=== PATIENT | female | born 1935 | race Two or more races ===

== ENCOUNTER → 2018-01-24 | Emergency (ER) | payer MEDICARE, OTHER ==
[~2018-01-24] VITALS: Ht 160 cm; Wt 77.1 kg
[~2018-01-24] MED LIST: ALPR0.255 PO; ASPI-605 PO; ATOR20TA PO; IV NS 0.9% 500 ML BAG IV ONE; LISI-607 PO; METO50TA16 PO; MORPHINE SULFATE INJ 2 MG/ML DISP.SYRIN IV ONE; MORPHINE SULFATE INJ 4 MG/ML DISP.SYRIN ONE; ONDANSETRON HCL/PF 4 MG/2 ML VIAL IVP ONE; ONDANSETRON HCL/PF 4 MG/2 ML VIAL ONE; RIVA10TA PO
--- NOTE | 2018-01-24 04:46 | NUR ---
pt bib son, c/o of pelvic pain and blood in the urine, vs stable, placed in er bed 12, dr nixon at bed side to jose pt, awaiting for orders.
[2018-01-24 05:24] LABS: BASOPHILS # (AUTO) 0.1 /CMM (0.0-0.2); EOSINOPHILS % (AUTO) 1.6 % (0.0-6.0); HEMATOCRIT 39 % (33-45); HEMOGLOBIN 13.3 g/dL (11.5-14.8); LYMPHOCYTES # (AUTO) 1.4 /CMM (0.8-4.8); LYMPHOCYTES % (AUTO) 17.3 % (20.0-44.0); MEAN CORPUSCULAR HGB CONC 35 g/dl (31.0-36.0); MEAN CORPUSCULAR VOLUME 91 fL (82-100); MONOCYTES # (AUTO) 0.8 /CMM (0.1-1.30); MONOCYTES % (AUTO) 9.9 % (2.0-12.0); NEUTROPHILS # (AUTO) 5.7 /CMM (1.8-8.9); NEUTROPHILS % (AUTO) 70.2 % (43.0-81.0); PLATELET COUNT (AUTO) 165 /CMM (150-450); RED BLOOD CELL COUNT(AUTO) 4.23 MIL/uL (4.0-5.2); WHITE BLOOD COUNT (AUTO) 8.1 K/uL (4.3-11.0)
--- NOTE | 2018-01-24 05:24 | NUR ---
blood work ordered, ct wo contrast abd, iv ns 500ml started.
[2018-01-24 05:36] LABS: CALCIUM, SERUM 9.1 mg/dL (8.5-10.1); CARBON DIOXIDE 28 mmol/L (21-32); CHLORIDE 106 mmol/L (98-107); CREATININE 1.2 mg/dL (0.6-1.3); GLUCOSE 93 mg/dL (74-106); POTASSIUM 3.7 mmol/L (3.5-5.1); SODIUM SERUM 143 mmol/L (136-145); UREA NITROGEN, BLOOD 25 mg/dL (7-18)
[2018-01-24 05:42] LABS: ALANINE AMINOTRANSFERASE 16 U/L (12-78); ALBUMIN 3.4 g/dL (3.4-5.0); ALKALINE PHOSPHATASE 75 U/L (46-116); ASPARTATE AMINOTRANSFERASE 18 U/L (15-37); BILIRUBIN,DIRECT 0.1 mg/dL (0.0-0.2); BILIRUBIN,TOTAL 0.4 mg/dL (0.2-1.0); LIPASE 171 U/L (73-393); TOTAL PROTEIN, SERUM 7.3 g/dL (6.4-8.2)
[2018-01-24 05:57] LABS: APPEARANCE,URINE SL CLOUDY (CLEAR); BILIRUBIN,URINE NEGATIVE (NEGATIVE); BLOOD, URINE 3+ Ery/uL (NEGATIVE); COLOR,URINE RED (YELLOW); KETONES,URINE NEGATIVE (NEGATIVE); LEUKOCYTE ESTERASE ,URINE 1+ (NEGATIVE); NITRITE, URINE NEGATIVE (NEGATIVE); PROTEIN,URINE 1+ mg/dl (NEGATIVE); UGLUCOSE NEGATIVE (NEGATIVE); UROBILINOGEN,URINE 0.2 EU/dL (0.2)
[2018-01-24 06:09] LABS: BACTERIA,URINE Few /HPF (None Seen); RBC,URINE 21-50 /HPF (0-2); SQUAMOUS EPITHELIAL CELL,UR Few /HPF (None Seen); WBC,URINE 51-80 /HPF (0-3)
--- NOTE | 2018-01-24 06:34 | NUR ---
Patient discharged to home in stable condition. Written and verbal after care instructions given. Rx given and explained, Patient verbalizes understanding of instruction.
[2018-01-24 06:36] VITALS: BP 131/77
== END | disposition home or self-care (01) ==
LOC: ER 04:28
DX: N39.0 Urinary tract infection, site not specified (principal); I10 Essential (primary) hypertension; F98.0 Enuresis not due to a substance or known physiological condition; Z95.0 Presence of cardiac pacemaker; Z98.890 Other specified postprocedural states; Z88.0 Allergy status to penicillin; Z87.442 Personal history of urinary calculi; Z79.82 Long term (current) use of aspirin
CPT/HCPCS: 36415; 80048-TC; 80076-TC; 81000-TC; 83690-TC; 85025-TC; 87086-TC; 87186-TC; A4606; J2270; J2405; J7040; Z7610

== ENCOUNTER 2019-10-18 14:20 | Emergency (ER) | payer MEDICARE, OTHER ==
[~2019-10-18] VITALS: Ht 165.1 cm; Wt 68.0 kg
[~2019-10-18 14:20] MED LIST changes: -IV NS 0.9% 500 ML BAG IV ONE; -MORPHINE SULFATE INJ 2 MG/ML DISP.SYRIN IV ONE; -MORPHINE SULFATE INJ 4 MG/ML DISP.SYRIN ONE; -ONDANSETRON HCL/PF 4 MG/2 ML VIAL IVP ONE; -ONDANSETRON HCL/PF 4 MG/2 ML VIAL ONE
[2019-10-18 14:31] VITALS: BP 137/76
[2019-10-18 14:40] LABS: APPEARANCE,URINE Turbid (CLEAR); BILIRUBIN,URINE Negative (NEGATIVE); BLOOD, URINE Large Ery/uL (NEGATIVE); COLOR,URINE Yellow (YELLOW); KETONES,URINE Negative (NEGATIVE); LEUKOCYTE ESTERASE ,URINE Moderate (NEGATIVE); NITRITE, URINE Negative (NEGATIVE); PROTEIN,URINE >=300 mg/dl (NEGATIVE); UGLUCOSE Negative (NEGATIVE); UROBILINOGEN,URINE 0.2 EU/dL (0.2)
--- NOTE | 2019-10-18 14:40 | NUR ---
URINE SPECIMEN COLLECTED AND SENT TO LAB.
[2019-10-18 14:48] LABS: BACTERIA,URINE Many /HPF (None Seen); RBC,URINE TOO NUMEROUS TO COUN /HPF (0-2); SQUAMOUS EPITHELIAL CELL,UR Few /HPF (None Seen); WBC,URINE 21-50 /HPF (0-3)
--- NOTE | 2019-10-18 15:20 | NUR ---
Patient discharged to home in stable condition. Written and verbal after care instructions given. Patient verbalizes understanding of instruction.
== END 2019-10-18 15:21 | disposition home or self-care (01) ==
LOC: ER 14:22
DX: N39.0 Urinary tract infection, site not specified (principal); I10 Essential (primary) hypertension; Z87.442 Personal history of urinary calculi; Z95.0 Presence of cardiac pacemaker; Z98.890 Other specified postprocedural states; Z88.0 Allergy status to penicillin; Z79.899 Other long term (current) drug therapy; Z79.82 Long term (current) use of aspirin
CPT/HCPCS: 81000-TC; 87086-TC

== ENCOUNTER 2019-11-07 19:57 | Emergency (ER) | payer MEDICARE, OTHER ==
[~2019-11-07] VITALS: Ht 162.6 cm; Wt 72.6 kg
--- NOTE | 2019-11-07 20:31 | NUR ---
PATIENT AMBULATED TO THE RESTROOM WITH A STEADY GAIT.
--- NOTE | 2019-11-07 20:31 | NUR ---
PATIENT CAME TO ER BED 9 WITH SON C/O PALPITATION SINCE 2xDAYS AGO AND BILATERAL LOWER EXTREMITY EDEMA WITH LEFT LEG PAIN. PATIENT IS AAXO4. NO SOB. BREATHING EVENLY AND UNLABORED ON ROOM AIR. CONNECTED TO THE MONITOR.
--- NOTE | 2019-11-07 20:40 | NUR ---
luca collected and sent to the lab
[2019-11-07 21:08] LABS: BASOPHILS % (AUTO) 0.7 % (0.0-2.0); EOSINOPHILS % (AUTO) 1.3 % (0.0-6.0); HEMATOCRIT 38 % (33-45); HEMOGLOBIN 12.8 g/dL (11.5-14.8); LYMPHOCYTES # (AUTO) 1.5 /CMM (0.8-4.8); LYMPHOCYTES % (AUTO) 22.3 % (20.0-44.0); MEAN CORPUSCULAR HGB CONC 34 g/dl (31.0-36.0); MEAN CORPUSCULAR VOLUME 94 fL (82-100); MONOCYTES # (AUTO) 0.8 /CMM (0.1-1.30); MONOCYTES % (AUTO) 11.6 % (2.0-12.0); NEUTROPHILS # (AUTO) 4.3 /CMM (1.8-8.9); NEUTROPHILS % (AUTO) 64.1 % (43.0-81.0); PLATELET COUNT (AUTO) 153 /CMM (150-450); RED BLOOD CELL COUNT(AUTO) 4.06 MIL/uL (4.0-5.2); WHITE BLOOD COUNT (AUTO) 6.7 K/uL (4.3-11.0)
[2019-11-07 21:15] LABS: CALCIUM, SERUM 9.4 mg/dL (8.5-10.1); CARBON DIOXIDE 26 mmol/L (21-32); CHLORIDE 103 mmol/L (98-107); GLUCOSE 102 mg/dL (74-106); POTASSIUM 4.4 mmol/L (3.5-5.1); SODIUM SERUM 139 mmol/L (136-145); UREA NITROGEN, BLOOD 39 mg/dL (7-18)
[2019-11-07 21:25] LABS: D-DIMER 0.69 mg/L(FEU (0.17-0.50)
[2019-11-07 21:28] LABS: ALANINE AMINOTRANSFERASE 29 U/L (12-78); ALBUMIN 3.5 g/dL (3.4-5.0); ALKALINE PHOSPHATASE 75 U/L (46-116); ASPARTATE AMINOTRANSFERASE 23 U/L (15-37); B-TYPE NATRIURETIC PEPTIDE 2662 PG/ML (0-125); BILIRUBIN,DIRECT 0.1 mg/dL (0.0-0.2); BILIRUBIN,TOTAL 0.3 mg/dL (0.2-1.0); TOTAL PROTEIN, SERUM 7.3 g/dL (6.4-8.2)
--- NOTE | 2019-11-07 23:20 | NUR ---
IV removed. Catheter intact and site benign. Pressure and 4x4 applied to site. No bleeding noted.
--- NOTE | 2019-11-07 23:20 | NUR ---
Patient discharged to home in stable condition. Written and verbal after care instructions given. Patient verbalizes understanding of instruction.
[2019-11-07 23:40] VITALS: BP 133/73
== END 2019-11-07 23:41 | disposition home or self-care (01) ==
LOC: ER 20:01
DX: R20.2 Paresthesia of skin (principal); R79.89 Other specified abnormal findings of blood chemistry; I11.0 Hypertensive heart disease with heart failure; I50.9 Heart failure, unspecified; Z95.0 Presence of cardiac pacemaker; Z87.442 Personal history of urinary calculi; Z87.440 Personal history of urinary (tract) infections; Z98.890 Other specified postprocedural states; Z88.0 Allergy status to penicillin; Z79.01 Long term (current) use of anticoagulants; Z79.82 Long term (current) use of aspirin; Z79.899 Other long term (current) drug therapy
CPT/HCPCS: 36415; 71045-TC; 80048-TC; 80076-TC; 83880; 84484-TC; 85025-TC; 85378-TC; 85730-TC; 93926-TC; 93971-TC

== ENCOUNTER 2019-11-18 22:29 | Emergency (ER) | payer MEDICARE, OTHER ==
[~2019-11-18] VITALS: Ht 160 cm; Wt 73.5 kg
--- NOTE | 2019-11-18 22:39 | NUR ---
PT AAOX4, CROATIAN SPEAKING. BIBSON FROM HOME C/O FACIAL, LIP, AND FINGER NUMBNESS X30 MINS AGO. PER PT, HER LISINOPRIL 20MG PO MED WAS STOPPED ON SATURDAY BY HER PMD. METOPOROLOL WAS INCREASED. PT'S SON STATED " SOON SHE SAW HER BLOOD PRESSURE WAS 150/80 SHE BECAME ANXIOUS." UP ASSESSMENT NO NEURO DEIFICT, NO FACIAL DROOPING, VSS. BP 150/93, PT APPEARS TO BE ANXIOUS. PT PALCED IN A GOWN, ON MONITOR, AND PULSE OX. AWAITING MD FOR EVAL AND ORDERS.
--- NOTE | 2019-11-18 22:51 | NUR ---
AT BEDSIDE FOR EVAL. PT AND SON AGREED TO HAVE A CP WORKUP.
[2019-11-18] MEDS ORDERED: NITROGLYCERIN PACKET 1 GM PACKET ONE (22:57)
[2019-11-18] MEDS ORDERED: LORAZEPAM INJ 2 MG/ML VIAL ONE (22:58)
[2019-11-18] MEDS ORDERED: LORAZEPAM INJ 2 MG/ML VIAL IV ONE (23:00)
[2019-11-18] MEDS ORDERED: NITROGLYCERIN PACKET 1 GM PACKET TD ONE (23:00)
[2019-11-18 23:09] LABS: BASOPHILS # (AUTO) 0.1 /CMM (0.0-0.2); BASOPHILS % (AUTO) 0.9 % (0.0-2.0); EOSINOPHILS % (AUTO) 1.8 % (0.0-6.0); HEMATOCRIT 39 % (33-45); HEMOGLOBIN 13.5 g/dL (11.5-14.8); LYMPHOCYTES # (AUTO) 1.3 /CMM (0.8-4.8); LYMPHOCYTES % (AUTO) 21.8 % (20.0-44.0); MEAN CORPUSCULAR HGB CONC 34 g/dl (31.0-36.0); MEAN CORPUSCULAR VOLUME 92 fL (82-100); MONOCYTES # (AUTO) 0.7 /CMM (0.1-1.30); MONOCYTES % (AUTO) 12.7 % (2.0-12.0); NEUTROPHILS # (AUTO) 3.7 /CMM (1.8-8.9); NEUTROPHILS % (AUTO) 62.8 % (43.0-81.0); PLATELET COUNT (AUTO) 170 /CMM (150-450); RED BLOOD CELL COUNT(AUTO) 4.25 MIL/uL (4.0-5.2); WHITE BLOOD COUNT (AUTO) 5.8 K/uL (4.3-11.0)
--- NOTE | 2019-11-18 23:23 | NUR ---
CALLED FOR COVID SWAB
--- NOTE | 2019-11-18 23:36 | NUR ---
PT DECLINED COVID SWAB. PT'S SON STATED HE DID NOT WANT THE PT TO STAY IN THE HOSPITAL DUE TO HIM NOT ABLE TO STAY WITH THE PT. PT AGREED TO STAY FOR ANOTHER TROP BLOOD DRAW AND EKG. WILL AMA AFTER.
[2019-11-18 23:41] LABS: CALCIUM, SERUM 8.6 mg/dL (8.5-10.1); CARBON DIOXIDE 23 mmol/L (21-32); CHLORIDE 89 mmol/L (98-107); CREATININE 1.3 mg/dL (0.6-1.3); GLUCOSE 112 mg/dL (74-106); POTASSIUM 4.4 mmol/L (3.5-5.1); SODIUM SERUM 121 mmol/L (136-145); UREA NITROGEN, BLOOD 14 mg/dL (7-18)
--- NOTE | 2019-11-18 23:41 | NUR ---
SPOKE TO PT AND SON REGARDING ELEVATED D-DIMER. PT WILL GO TO CTA.
[2019-11-18 23:51] LABS: ALBUMIN 3.7 g/dL (3.4-5.0); BILIRUBIN,DIRECT 0.2 mg/dL (0.0-0.2); BILIRUBIN,TOTAL 0.6 mg/dL (0.2-1.0); TOTAL PROTEIN, SERUM 7.3 g/dL (6.4-8.2)
[2019-11-19] MEDS ORDERED: CT SWABBABLE VALVE TRANS SET 1 EA INFUS.SET MC ONE (00:21)
[2019-11-19] MEDS ORDERED: IV NS 0.9% 250 ML IV ONE (00:21)
[2019-11-19] MEDS ORDERED: IOHEXOL-350 100 ML VIAL IV ONE (00:21)
--- NOTE | 2019-11-19 00:29 | NUR ---
AT BEDSIDE SPEAKING TO PT. PT REPORTED LAST TIME SHE HAD A CTA, SHE BECAME SOB.
--- NOTE | 2019-11-19 02:01 | NUR ---
STOCK LETTERER AT BEDSIDE FOR SECOND TROP
--- NOTE | 2019-11-19 02:59 | NUR ---
IV removed. Catheter intact and site benign. Pressure and 4x4 applied to site. No bleeding noted.
--- NOTE | 2019-11-19 03:01 | NUR ---
Patient does not wish to proceed with medical care recommended by Dr. Emmett Zarate. Patient given information related to possible complications, up to and including , which could occur as a result of leaving the hospital at this time. Patient verbalizes understanding of risks involved due to leaving against medical advice. Patient has signed AMA form.
[2019-11-19 03:11] VITALS: BP 138/75
[2019-11-19] MEDS ORDERED: IV NS 0.9% 1,000 ML IV ONE (03:30)
== END 2019-11-19 03:12 | disposition home or self-care (01) ==
LOC: ER 22:29
DX: R07.89 Other chest pain (principal); R06.00 Dyspnea, unspecified; F45.8 Other somatoform disorders; R94.31 Abnormal electrocardiogram [ECG] [EKG]; E87.1 Hypo-osmolality and hyponatremia; I11.0 Hypertensive heart disease with heart failure; I50.9 Heart failure, unspecified; R79.1 Abnormal coagulation profile; Z95.0 Presence of cardiac pacemaker; Z98.890 Other specified postprocedural states; Z88.0 Allergy status to penicillin; Z79.82 Long term (current) use of aspirin; Z79.899 Other long term (current) drug therapy; Z79.01 Long term (current) use of anticoagulants
CPT/HCPCS: 36415 ×2; 71045; 80048; 80076; 83880; 84484 ×2; 85025; 85378; 93005 ×2; 96374; 99285; J2060; J7030; J7050; Q9967

== ENCOUNTER 2022-05-08 21:49 | Emergency (ER) | payer MEDICARE, OTHER ==
[~2022-05-08] VITALS: Ht 167.6 cm; Wt 81.6 kg
[~2022-05-08 21:49] MED LIST changes: -LISI-607 PO; +LISI-768 PO
--- NOTE | 2022-05-08 22:37 | NUR ---
OSBALDO C/O HTN AND HEADACHE. TAKES METOPROLOL 100MG BID. TOOK EXTRA 50MG AT 1999. REPORTS HIGHEST BP AT HOME WAS IN 170S. PT AWAKE AND ALERT X4 NO NEURO DEFECITS NOTED. SON AT BEDSIDE WITH PATIENT.
--- NOTE | 2022-05-08 23:04 | NUR ---
20G IV STARTED AT [facility]. BLOOD SENT TO LAB
--- NOTE | 2022-05-08 23:11 | NUR ---
EMT AT [facility] FOR EKG
[2022-05-08 23:17] LABS: BASOPHILS % (AUTO) 0.5 % (0.0-2.0); EOSINOPHILS % (AUTO) 1.3 % (0.0-6.0); HEMATOCRIT 35 % (33-45); HEMOGLOBIN 11.6 g/dL (11.5-14.8); LYMPHOCYTES # (AUTO) 1.2 K/uL (0.8-4.8); LYMPHOCYTES % (AUTO) 20.4 % (20.0-44.0); MEAN CORPUSCULAR HGB CONC 33 g/dl (31.0-36.0); MEAN CORPUSCULAR VOLUME 88 fL (82-100); MONOCYTES # (AUTO) 0.6 K/uL (0.1-1.30); MONOCYTES % (AUTO) 10.6 % (2.0-12.0); NEUTROPHILS # (AUTO) 4.1 K/uL (1.8-8.9); NEUTROPHILS % (AUTO) 67.2 % (43.0-81.0); PLATELET COUNT (AUTO) 149 K/uL (150-450)
--- NOTE | 2022-05-08 23:28 | NUR ---
PT BEING TRANSPORTED TO CT
[2022-05-08] MEDS ORDERED: ACETAMINOPHEN ES 500 MG TABLET ONE (23:29)
[2022-05-08 23:30] LABS: CALCIUM, SERUM 9.1 mg/dL (8.5-10.1); CARBON DIOXIDE 29 mmol/L (21-32); CHLORIDE 104 mmol/L (98-107); CREATININE 1.4 mg/dL (0.6-1.3); GLUCOSE 96 mg/dL (74-106); SODIUM SERUM 138 mmol/L (136-145); UREA NITROGEN, BLOOD 30 mg/dL (7-18)
[2022-05-08 23:43] LABS: ALANINE AMINOTRANSFERASE 13 U/L (12-78); ALBUMIN 3.5 g/dL (3.4-5.0); ALKALINE PHOSPHATASE 73 U/L (46-116); ASPARTATE AMINOTRANSFERASE 20 U/L (15-37); BILIRUBIN,DIRECT 0.1 mg/dL (0.0-0.2); BILIRUBIN,TOTAL 0.4 mg/dL (0.2-1.0); TOTAL PROTEIN, SERUM 7.1 g/dL (6.4-8.2)
[2022-05-08] MEDS: ACETAMINOPHEN ES 500 MG TABLET PO ONE (23:49)
[2022-05-09] MEDS ORDERED: hydrALAZINE HCL 50 MG TABLET ONE (00:16)
[2022-05-09] MEDS: hydrALAZINE HCL 25 MG TABLET PO ONE (00:21)
--- NOTE | 2022-05-09 00:51 | NUR ---
Patient discharged to home in stable condition. Written and verbal after care instructions given. Patient verbalizes understanding of instruction.IV removed. Catheter intact and site benign. Pressure and 4x4 applied to site. No bleeding noted.
[2022-05-09 00:53] VITALS: BP 145/52
== END 2022-05-09 00:56 | disposition home or self-care (01) ==
LOC: ER 21:52
DX: R51.9 Headache, unspecified (principal); Z79.899 Other long term (current) drug therapy; Z79.82 Long term (current) use of aspirin; Z88.0 Allergy status to penicillin; Z88.1 Allergy status to other antibiotic agents
CPT/HCPCS: 36415; 70450-TC; 71045-TC; 80048-TC; 80076-TC; 83880; 84484-TC; 85025-TC

== ENCOUNTER 2024-04-30 15:25 | Emergency (ER) | payer MEDICARE, OTHER ==
[~2024-04-30] VITALS: Ht 154.9 cm; Wt 69.4 kg
[2024-04-30 15:57] LABS: BASOPHILS % (AUTO) 0.7 % (0.0-2.0); EOSINOPHILS % (AUTO) 0.8 % (0.0-6.0); HEMATOCRIT 34 % (33-45); HEMOGLOBIN 11.4 g/dL (11.5-14.8); LYMPHOCYTES # (AUTO) 1.4 K/uL (0.8-4.8); LYMPHOCYTES % (AUTO) 20.8 % (20.0-44.0); MEAN CORPUSCULAR HEMOGLOBIN 28 PG (26.0-33.0); MEAN CORPUSCULAR HGB CONC 33 g/dl (31.0-36.0); MEAN CORPUSCULAR VOLUME 85 fL (82-100); MONOCYTES # (AUTO) 0.7 K/uL (0.1-1.30); MONOCYTES % (AUTO) 11.2 % (2.0-12.0); NEUTROPHILS # (AUTO) 4.4 K/uL (1.8-8.9); NEUTROPHILS % (AUTO) 66.5 % (43.0-81.0); PLATELET COUNT (AUTO) 193 K/uL (150-450); RED BLOOD CELL COUNT(AUTO) 4.01 MIL/uL (4.0-5.2); RED CELL DISTRIBUTION WIDTH 15.2 % (11.5-15.0); WHITE BLOOD COUNT (AUTO) 6.6 K/uL (4.3-11.0)
[2024-04-30] MEDS ORDERED: LIDO30AD10 TP (16:14)
[2024-04-30 16:21] LABS: CARBON DIOXIDE 29 mmol/L (21-32); CHLORIDE 104 mmol/L (98-107); CREATININE 1.7 mg/dL (0.6-1.3); GLUCOSE 86 mg/dL (74-106); POTASSIUM 4.2 mmol/L (3.5-5.1); SODIUM SERUM 140 mmol/L (136-145); UREA NITROGEN, BLOOD 38 mg/dL (7-18)
[2024-04-30 16:35] LABS: NT-PRO BNP 1814 pg/mL (0-125)
[2024-04-30] MEDS: LIDOCAINE 5% (PATCH) 1 EA PATCH TP STA (17:08)
[2024-04-30] MEDS ORDERED: LIDOCAINE 5% (PATCH) 1 EA PATCH TP ONE (17:09)
[2024-04-30 18:04] VITALS: BP 151/69; TEMP 98.3; O2SAT 99
== END 2024-04-30 18:04 | disposition home or self-care (01) ==
LOC: ER 15:30
DX: S20.211A Contusion of right front wall of thorax, initial encounter (principal); I13.0 Hypertensive heart and chronic kidney disease with heart failure and stage 1 through stage 4 chronic kidney disease, or unspecified chronic kidney disease; N18.9 Chronic kidney disease, unspecified; I50.9 Heart failure, unspecified; E78.5 Hyperlipidemia, unspecified; Z88.0 Allergy status to penicillin; Z88.6 Allergy status to analgesic agent; Z79.82 Long term (current) use of aspirin; Z87.440 Personal history of urinary (tract) infections; Z87.442 Personal history of urinary calculi; Z79.899 Other long term (current) drug therapy; Y93.89 Activity, other specified; Y92.89 Other specified places as the place of occurrence of the external cause; Y99.8 Other external cause status
CPT/HCPCS: 36415; 71100-TC; 80048-TC; 83880; 84484-TC; 85025-TC